=== PATIENT | female | born 2000 | race Caucasian/White ===

== ENCOUNTER → 2023-03-19 | Day surgery (SDC) | payer OTHER ==
[~2023-03-19] VITALS: Ht 172.7 cm; Wt 57.2 kg
[~2023-03-19] MED LIST: ADDE5CAP PO; LIDOCAINE 2% 100MG/5ML SDV (FOR ANES.) As Ordered ONE; NS 1,000 ML IV ONE; fentaNYL 100 MCG/2 ML INJECTION As Ordered ONE; propofoL 200 MG/20 ML VIAL As Ordered ONE
[2023-03-19 14:04] VITALS: TEMP 98.4
[2023-03-19 14:20] VITALS: BP 123/68; O2SAT 100
== END | disposition home or self-care (01) ==
LOC: M OPP 12:51
PROVIDERS: ATTEND Internal Medicine Gastroenterology
DX: R10.13 Epigastric pain (principal); B96.81 Helicobacter pylori [H. pylori] as the cause of diseases classified elsewhere; F17.200 Nicotine dependence, unspecified, uncomplicated; Z79.899 Other long term (current) drug therapy
CPT/HCPCS: 43239; 88305; J3010